=== PATIENT | male | born 1965 | race Caucasian/White ===

== ENCOUNTER 2019-09-02 09:12 | Day surgery (SDC) | payer BC, OTHER ==
[~2019-09-02] VITALS: Ht 188 cm; Wt 136.5 kg
[~2019-09-02 09:12] MED LIST: CELE40TA PO; NO ITAB PO; NS 1,000 ML IV ONE; OMEP40CA97 PO
[2019-09-02] MEDS ORDERED: LIDOCAINE 2% INJ 100 MG/5 ML SDV (FOR ANES.) As Ordered ONE (10:41)
[2019-09-02] MEDS ORDERED: propofoL 200 MG/20 ML VIAL As Ordered ONE ×2 (10:41→11:46)
--- NOTE | 2019-09-02 11:44 | ROOR ---
Patient Name: Kev Pruitt Procedure Date: 09/02/2019 11:28 AM Date of : 1965 Age: 54 Room: [facility] Gender: Male Note Status: Finalized Procedure: Upper GI endoscopy Indications: Heartburn Providers: Flex TREVINO MD Referring MD: MARKELL FORBES MD Requesting Provider: Medicines: Monitored Anesthesia Care Complications: No immediate complications. Procedure: Pre-Anesthesia Assessment: - The heart rate, respiratory rate, oxygen saturations, blood pressure, adequacy of pulmonary ventilation, and response to care were monitored throughout the procedure. The Endoscope was introduced through the mouth, and advanced to the jejunum. The upper GI endoscopy was accomplished without difficulty. The patient tolerated the procedure well. Findings: The examined esophagus was normal. The Z-line was found 41 cm from the incisors. Evidence of a Mihai-en-Y gastrojejunostomy was found. The gastrojejunal anastomosis was characterized by healthy appearing mucosa. The exam of the stomach was otherwise normal. The cardia and gastric fundus were normal on retroflexion. The examined jejunum was normal. Impression: - Normal esophagus. - Z-line, 41 cm from the incisors. - Mihai-en-Y gastrojejunostomy with gastrojejunal anastomosis characterized by healthy appearing mucosa. - Normal examined jejunum. - No specimens collected. Recommendation: - Follow an antireflux regimen. - Continue present medications. - Use Gaviscon PO as directed PRN. Flex Trevino MD Flex TREVINO MD 09/02/2019 11:44:27 AM Electronically signed by Flex TREVINO MD Number of Addenda: 0 Note Initiated On: 09/02/2019 11:28 AM Estimated Blood Loss: Estimated blood loss: none.
[2019-09-02] MEDS ORDERED: fentaNYL 100 MCG/2 ML INJECTION (J3010) As Ordered ONE (11:45)
--- NOTE | 2019-09-02 11:59 | ROOR ---
Patient Name: Kev Pruitt Procedure Date: 09/02/2019 11:29 AM Date of : 1965 Age: 54 Room: [facility] Gender: Male Note Status: Finalized Procedure: Colonoscopy Indications: Change in bowel habits Providers: Flex TREVINO MD Referring MD: MARKELL FORBES MD Requesting Provider: Medicines: Monitored Anesthesia Care Complications: No immediate complications. Procedure: Pre-Anesthesia Assessment: - The heart rate, respiratory rate, oxygen saturations, blood pressure, adequacy of pulmonary ventilation, and response to care were monitored throughout the procedure. The Colonoscope was introduced through the anus and advanced to 10 cm into the ileum. The colonoscopy was performed without difficulty. The patient tolerated the procedure well. The quality of the bowel preparation was good. Findings: The perianal and digital rectal examinations were normal. External and internal hemorrhoids were found during retroflexion. The hemorrhoids were medium-sized. The entire examined colon appeared normal. The terminal ileum appeared normal. Biopsies for histology were taken with a cold forceps for evaluation of microscopic colitis. Impression: - External and internal hemorrhoids. - The entire colon is normal. - The examined portion of the ileum was normal. - Biopsies were taken with a cold forceps for evaluation of microscopic colitis. Recommendation: - Telephone endoscopist for pathology results in 2 weeks. - Use fiber, for example Citrucel, Fibercon, Konsyl or Metamucil. - Lactose free diet. Flex Trevino MD Flex TREVINO MD 09/02/2019 11:59:02 AM Electronically signed by Flex TREVINO MD Number of Addenda: 0 Note Initiated On: 09/02/2019 11:29 AM Estimated Blood Loss: Estimated blood loss: none.
[2019-09-02 12:20] VITALS: BP 162/98
== END 2019-09-02 12:31 | disposition home or self-care (01) ==
LOC: M OPP 09:12
PROVIDERS: ATTEND Internal Medicine Gastroenterology
DX: K64.8 Other hemorrhoids (principal); R12 Heartburn; Z98.0 Intestinal bypass and anastomosis status; Z98.84 Bariatric surgery status; Z83.71 Family history of colonic polyps; Z79.899 Other long term (current) drug therapy; Z88.5 Allergy status to narcotic agent
CPT/HCPCS: 43235; 45380; 88305; J3010

== ENCOUNTER → 2022-02-05 | Outpatient (REF) | payer BC, OTHER ==
[~2022-02-05] MED LIST changes: -NS 1,000 ML IV ONE; +OMEP40CA4 PO; -OMEP40CA97 PO
[2022-02-05 16:55] LABS: APPEARANCE, URINE MANUAL CLEAR (CLEAR); COLOR, URINE MANUAL YELLOW (YELLOW)
[2022-02-05 16:56] LABS: BILIRUBIN, URINE MANUAL NEGATIVE (NEGATIVE); BLOOD URINE MANUAL NEGATIVE (NEGATIVE); GLUCOSE, URINE (UA) MANUAL NEGATIVE (NEGATIVE); KETONE, URINE MANUAL NEGATIVE (NEGATIVE); LEUKOCYTE ESTERASE, URINE MAN NEGATIVE (NEGATIVE); NITRITE, URINE MANUAL NEGATIVE (NEGATIVE); PROTEIN, URINE MANUAL NEGATIVE (NEGATIVE); UROBILINOGEN, URINE MANUAL NORMAL (NORMAL)
[2022-02-05 18:55] LABS: GC DNA AMPLIFICATION NEGATIVE (NEGATIVE)
== END ==
LOC: M LAB REF 16:11
PROVIDERS: ATTEND Physician Assistant Medical
DX: N39.0 Urinary tract infection, site not specified (principal); Z20.2 Contact with and (suspected) exposure to infections with a predominantly sexual mode of transmission

== ENCOUNTER → 2023-12-02 | Outpatient (REF) ==
[2023-12-02 10:56] LABS: COLLAGEN EPINEPHRINE 134 SECONDS (74-162)
== END ==
LOC: M CAHLAB 10:30
PROVIDERS: ATTEND Physician Assistant
DX: Z00.00 Encounter for general adult medical examination without abnormal findings (principal)

== ENCOUNTER → 2025-02-28 | Outpatient (CLI) | payer OTHER | LOC: M OUTALCOH 08:40 | PROVIDERS: ATTEND Psychiatry & Neurology Psychiatry | DX: Z03.89 Encounter for observation for other suspected diseases and conditions ruled out (principal) ==

== ENCOUNTER 2025-03-14 10:15 | Outpatient (RCR) | payer OTHER | END 2025-03-22 | LOC: M OUTALCOH 10:15 | PROVIDERS: ATTEND Psychiatry & Neurology Psychiatry | DX: Z03.89 Encounter for observation for other suspected diseases and conditions ruled out (principal) ==